=== PATIENT | female | born 1990 | race Hispanic/Latino ===

== ENCOUNTER 2020-09-03 13:15 | Emergency (ER) | payer OTHER, SELFPAY ==
[2020-09-03] MEDS ORDERED: KETOROLAC 30 MG/ML INJ ONE (14:54)
[2020-09-03] MEDS ORDERED: HYDROCODONE/APAP 5/325 MG TAB ONE (14:54)
[2020-09-03] MEDS ORDERED: CYCLOBENZAPRINE 10 MG TAB ONE (14:54)
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
[2020-09-03 16:34] VITALS: TEMP 98.7
[2020-09-03 16:35] VITALS: BP 130/80; O2SAT 99
== END 2020-09-03 16:30 | disposition home or self-care (01) ==
LOC: ER 13:15
DX: S16.1XXA Strain of muscle, fascia and tendon at neck level, initial encounter (principal); M54.5 Low back pain; V49.49XA Driver injured in collision with other motor vehicles in traffic accident, initial encounter
CPT/HCPCS: 70450; 72125; 72128; 72131; 96372; 99284